=== PATIENT | female | born 1990 | race Asian ===

== ENCOUNTER 2022-08-02 21:55 | Emergency (ER) | payer SELFPAY ==
[~2022-08-02] VITALS: Ht 157.5 cm; Wt 56.0 kg
[2022-08-02 22:24] VITALS: BP 112/77
[2022-08-03] MEDS: TRAMADOL 50MG TABLET PO ONE (01:00)
[2022-08-03] MEDS: FLUORESCEIN SODIUM 1MG/STRIP LEFTEYE ONE (01:00)
== END 2022-08-03 01:40 | disposition left against medical advice (07) ==
LOC: ER 22:32
DX: S05.92XA Unspecified injury of left eye and orbit, initial encounter (principal); X58.XXXA Exposure to other specified factors, initial encounter; Y93.89 Activity, other specified; Y92.89 Other specified places as the place of occurrence of the external cause; Y99.8 Other external cause status; Z88.0 Allergy status to penicillin
CPT/HCPCS: 99283